=== PATIENT | male | born 1985 | race Caucasian/White ===

== ENCOUNTER 2016-10-20 05:15 | Emergency (ER) | payer MEDICAID, OTHER ==
[2016-10-20] MEDS ORDERED: TDaP 0.5 ML VIAL IM.VACC ONE (05:45)
== END 2016-10-20 06:11 | disposition home or self-care (01) ==
LOC: ER 05:15
DX: S01.111A Laceration without foreign body of right eyelid and periocular area, initial encounter (principal); W01.198A Fall on same level from slipping, tripping and stumbling with subsequent striking against other object, initial encounter; Y92.69 Other specified industrial and construction area as the place of occurrence of the external cause; Z23 Encounter for immunization; F17.210 Nicotine dependence, cigarettes, uncomplicated
CPT/HCPCS: 90471